=== PATIENT | male | born 2000 | race Caucasian/White ===

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

== ENCOUNTER 2018-07-16 10:57 | Emergency (ER) | payer OTHER ==
[2018-07-16] MEDS ORDERED: LORazepam 2 MG/ML INJ IVP ONE (11:31)
--- NOTE | 2018-07-16 11:33 | EDPHY ---
H & P Stated Complaint: SOB/anxiety Time Seen by Provider: 07/16/18 11:19 HPI/ROS: CHIEF COMPLAINT: Dyspnea, anxious HISTORY OF PRESENT ILLNESS: The patient presents the ED with complaints of shortness of breath, mild anxiety, extremity paresthesias and restlessness which began after smoking marijuana yesterday. The patient does report he is a chronic user of marijuana and did not smoking excess or have a new strain of marijuana. He is had ongoing symptoms today prompting his visit to the emergency department. He reports symptoms of dysphoria, restlessness, anxiety and extremity paresthesias. Patient denies any fever or productive cough. His symptoms are made worse with deep breaths. He denies any asymmetric calf pain or swelling. He denies significant past medical history and takes no regular medications. REVIEW OF SYSTEMS: A comprehensive 10 point review of systems is otherwise negative aside from elements mentioned in the history of present illness. Source: Patient Exam Limitations: No limitations - Personal History Current Tetanus/Diphtheria Vaccine: Yes - Medical/Surgical History Hx Asthma: No Hx Chronic Respiratory Disease: No Hx Diabetes: No Hx Cardiac Disease: No Hx Renal Disease: No Hx Cirrhosis: No Hx Alcoholism: No Hx HIV/AIDS: No Hx Splenectomy or Spleen Trauma: No Other PMH: R SHOULDER DISLOCATION/R INGUINAL HERNIA - Social History Smoking Status: Current some day smoker - Physical Exam Exam: General Appearance: Alert, anxious, no acute distress Eyes: Pupils equal and round no pallor or injection ENT, Mouth: Mucous membranes moist Respiratory: There are no retractions, lungs are clear to auscultation Cardiovascular: Regular rate and rhythm Gastrointestinal: Abdomen is soft and nontender, no masses, bowel sounds normal Neurological: A&O, normal motor function, normal sensory exam, normal cranial nerves Skin: Warm and dry, no rashes Musculoskeletal: Neck is supple nontender Extremities: symmetrical, full range of motion Psychiatric: Patient is oriented X 3, there is no agitation Constitutional: Initial Vital Signs Temperature (C) 36.6 C 07/16/18 11:10 Heart Rate 65 07/16/18 11:10 Respiratory Rate 18 07/16/18 11:10 Blood Pressure 149/90 H 07/16/18 11:10 O2 Sat (%) 98 07/16/18 11:10 O2 Delivery Mode Room Air Allergies/Adverse Reactions: No Known Allergies Allergy (Unverified 07/16/18 11:14) Home Medications: Medication Instructions Recorded Ondansetron Odt [Zofran Odt 4 mg 4 mg PO Q4 PRN #6 tab 03/12/17 (*)] Pantoprazole Sodium [Protonix 40mg 40 mg PO DAILY #20 tab 03/12/17 (*)] Ranitidine HCl 03/12/17 Medical Decision Making - Diagnostics EKG Interpretation: EKG: Complete interpretation has been separately recorded in the [employer] archive. Summary impression: Sinus rhythm, rate 51, no ischemic changes noted, Imaging Results: Imaging Impressions Chest X-Ray 07/16/18 11:20 Impression: No acute pulmonary disease. ED Course/Re-evaluation: The patient presents to the ED with symptoms consistent with hyperventilation after using THC. The patient's EKG demonstrates no acute changes. The patient' s chest x-ray demonstrates no evidence of a pneumonia or pneumothorax. The patient is hemodynamically stable. Patient's troponin is normal. The patient did receive 1 mg of IV Ativan. I reassessed the patient at 12:30 p.m.. He is feeling much better. The patient does report that he was using LSD over the weekend which certainly contributed to his symptoms today. At this point time the patient is back to normal with no acute complaints. The patient has been cautioned about the use of recreational drugs. The patient will be discharged home with a friend who will pick him up. He is given instructions to return to the ED for any recurrent symptoms of shortness of breath or abnormal behavior. Differential Diagnosis: Differential diagnosis considered includes hyperventilation, dehydration, pneumothorax, pneumonia, pericarditis, myocardial infarction - Data Points Laboratory Results: 07/16/18 07/16/18 11:30 11:30 POC Troponin I 0.00 ng/mL ng/mL (0.00-0.08) Troponin I Pending Medications Given: Discontinued Medications Lorazepam (Ativan Injection) 1 mg IVP EDNOW ONE Stop: 07/16/18 11:32 Last Admin: 07/16/18 11:42 Dose: 1 mg Point of Care Test Results: Chemistry 07/16/18 11:30 POC Troponin I 0.00 ng/mL ng/mL (0.00-0.08) Departure - Departure Disposition: Home, Routine, Self-Care Clinical Impression: Acute dyspnea, Hyperventilation, Anxiety reaction, Poisoning by LSD Condition: Good Instructions: Hyperventilation (ED) Additional Instructions: 1. Your testing in the emergency department today demonstrates no significant abnormality. 2. I do believe that you are hyperventilating from the marijuana, MDMA and LSD you consumed this weekend. I highly recommend not using recreational drugs.
--- NOTE | 2018-07-16 11:35 | CPEKG ---
Test Reason : OPEN Blood Pressure : / mmHG Vent. Rate : 051 BPM Atrial Rate : 050 BPM P-R Int : 123 ms QRS Dur : 098 ms QT Int : 390 ms P-R-T Axes : 070 097 057 degrees QTc Int : 360 ms Sinus rhythm Atrial premature complex Consider right ventricular hypertrophy Confirmed by Israel Escobar ([id number]) on 07/16/2018 11:35:37 AM Referred By: Confirmed By:Israel Escobar
[2018-07-16 12:26] VITALS: BP 125/72
== END 2018-07-16 12:34 | disposition home or self-care (01) ==
DX: R06.4 Hyperventilation (principal); F12.90 Cannabis use, unspecified, uncomplicated
CPT/HCPCS: 84484-PO; 96374; J2060

== ENCOUNTER 2018-08-16 13:30 | Emergency (ER) | payer OTHER ==
--- NOTE | 2018-08-16 14:21 | EDPHY ---
H & P Stated Complaint: small amt pa blood in stool Source: Patient Exam Limitations: No limitations - Personal History Current Tetanus Diphtheria and Acellular Pertussis (TDAP): Unsure - Medical/Surgical History Hx Asthma: No Hx Chronic Respiratory Disease: No Hx Diabetes: No Hx Cardiac Disease: No Hx Renal Disease: No Hx Cirrhosis: No Hx Alcoholism: No Hx HIV/AIDS: No Hx Splenectomy or Spleen Trauma: No Other PMH: R SHOULDER DISLOCATION/R INGUINAL HERNIA/ gerd - Social History Smoking Status: Current some day smoker Time Seen by Provider: 08/16/18 14:20 HPI/ROS: HPI: This is a 18-year-old male who presents with Chief Complaint: small amt pa blood in stool Location: rectal Quality: Bleeding Duration: Prior to arrival Signs and Symptoms: no fever, no nausea, no vomiting, no hematemesis, + blood in stool, no abdominal bloating, no diarrhea, no back pain, no urinary symptoms , no testicular/groin pain, no indigestion, no chest pain, no shortness of breath Timing: Acute Severity: Mild Context: Patient is a student at [employer], presents with complaints of a small amount of pa blood while having a bowel movement this afternoon. Patient reports that he was straining to have a bowel movement. He admits to not drinking enough water the last several days. Denies any head hemorrhoids, nausea, vomiting, fever. He is eating and drinking without any difficulty. Modifying Factors: None Comment: ROS: A comprehensive 10 system review of systems is otherwise negative aside from elements mentioned in the history of present illness. MEDICAL/SURGICAL/SOCIAL HISTORY: Medical history: R SHOULDER DISLOCATION/R INGUINAL HERNIA/Gerd Surgical history: Denies Social history: Every day smoker. Family history noncontributory. CONSTITUTIONAL: Slightly anxious extremely well-appearing young adult white male, awake and alert, no obvious distress HEENT: Atraumatic and normocephalic, PERRL, EOMI. Nares patent; no rhinorrhea; no nasal mucosal edema. Tympanic membranes clear. Oropharynx clear, no exudate and moist pink mucosa. Airway patent. No lymphadenopathy. No meningismus. Cardiovascular: Normal S1/S2, regular rate, regular rhythm, without murmur rub or gallop. PULMONARY/CHEST: Symmetrical and nontender. Clear to auscultation bilaterally. Good air movement. No accessory muscle usage. ABDOMEN: Soft, nondistended, nontender, no rebound, no guarding, no peritoneal signs, no masses or organomegaly. No CVAT. RECTAL: Good sphincter tone, light brown stool in vault, no external hemorrhoids , no fissures, no palpable masses, guaiac negative EXTREMITIES: 2/2 pulses, strength 5/5, no deformities, no clubbing, no cyanosis or edema. NEUROLOGICAL: no focal neuro deficits. GCS 15. SKIN: Warm and dry, no erythema. no rash. Good capillary refill. (Shahrzad Frank) Constitutional: Initial Vital Signs Temperature (C) 36.6 C 08/16/18 13:36 Heart Rate 55 L 08/16/18 13:36 Respiratory Rate 18 08/16/18 13:36 Blood Pressure 138/69 H 08/16/18 13:36 O2 Sat (%) 97 08/16/18 13:36 O2 Delivery Mode Room Air Allergies/Adverse Reactions: No Known Allergies Allergy (Verified 08/16/18 13:34) Home Medications: Medication Instructions Recorded Ondansetron Odt [Zofran Odt 4 mg 4 mg PO Q4 PRN #6 tab 03/12/17 (*)] Pantoprazole Sodium [Protonix 40mg 40 mg PO DAILY #20 tab 03/12/17 (*)] Ranitidine HCl 03/12/17 Medical Decision Making ED Course/Re-evaluation: Vital signs stable upon arrival. No signs of thrombosed hemorrhoids/rectal fissure Abdomen is soft and nontender and doubt surgical process and need for imaging. Occult stool is negative. Advised supportive care and reassurance provided. This patient was seen under the supervision of my secondary supervising physician. I evaluated care for this patient independently. Discussed this patient with Dr. Rodney who did not see the patient. (Shahrzad Frank) The patient was evaluated and managed by the physician assistant baseball coach. I have reviewed this chart and I agree with the findings and plan of care as documented , as indicated by my signature. I am the secondary supervising physician. ( Mabel Rodney) Differential Diagnosis: Differential diagnosis includes but is not limited to constipation, rectal laceration, anal fissure, ulcerative colitis, Crohn's disease, hemorrhoid. (Shahrzad Frank) Departure - Departure Disposition: Home, Routine, Self-Care Clinical Impression: Straining during bowel movements Condition: Good Instructions: Constipation (ED), Rectal Bleeding (ED) Additional Instructions: Consume a minimum of 8-10 glasses of water or electrolyte fluid replacement drinks that include Gatorade, Powerade, Pedialyte. Do Not strain to have a bowel movement. Take MiraLax daily as needed for constipation. Referrals: BONNIE Camacho,. [Clinic] - Follow Up Only If Needed
[2018-08-16 15:24] VITALS: BP 124/77
== END 2018-08-16 15:24 | disposition home or self-care (01) ==
DX: R19.4 Change in bowel habit (principal)

== ENCOUNTER 2018-12-04 14:23 | Emergency (ER) | payer OTHER ==
--- NOTE | 2018-12-04 14:27 | EDPHY ---
H & P Source: Patient Exam Limitations: No limitations - Medical/Surgical History Hx Asthma: No Hx Chronic Respiratory Disease: No Hx Diabetes: No Hx Cardiac Disease: No Hx Renal Disease: No Hx Cirrhosis: No Hx Alcoholism: No Hx HIV/AIDS: No Hx Splenectomy or Spleen Trauma: No Other PMH: R SHOULDER DISLOCATION/R INGUINAL HERNIA/ gerd - Social History Smoking Status: Current some day smoker Time Seen by Provider: 12/04/18 14:27 HPI/ROS: HPI: This is a 18-year-old male who presents with Chief Complaint: flu like symptoms fever cough body aches Location: Body Quality: Subjective fever, cough, body aches Duration: 2-3 days Signs and Symptoms: + subjective fever, no nausea, no vomiting, no diarrhea, no urinary symptoms, no chest pain, no shortness of breath, no wheezing, + nonproductive cough, no sore throat, no neck stiffness, no joint pain, no swollen glands, no ear pain, no rash Timing: Acute Severity: [id number] Context: Patient presents with 2-3 day history of subjective fever, nonproductive cough, body aches. Patient has no history of lung disease. Does use tobacco and marijuana. Did Not receive influenza vaccine this year. Also complains of some nasal congestion. Modifying Factors: No [id number] medications used Comment: ROS: A comprehensive 10 system review of systems is otherwise negative aside from elements mentioned in the history of present illness. MEDICAL/SURGICAL/SOCIAL HISTORY: Medical history: R SHOULDER DISLOCATION/R INGUINAL HERNIA/ gerd Surgical history: Denies Social history: Current every day smoker. Marijuana user. Employed at [employer]. Family history noncontributory. CONSTITUTIONAL: Well-appearing young adult white male, awake and alert, no obvious distress HEENT: Atraumatic and normocephalic, PERRL, EOMI. Nares patent; no rhinorrhea; no nasal mucosal edema. Tympanic membranes clear. Oropharynx clear, no exudate and moist pink mucosa. Airway patent. No lymphadenopathy. No meningismus. Cardiovascular: Normal S1/S2, regular rate, regular rhythm, without murmur rub or gallop. PULMONARY/CHEST: Symmetrical and nontender. Clear to auscultation bilaterally. Good air movement. No accessory muscle usage. Dry cough noted. ABDOMEN: Soft, nondistended, nontender, no rebound, no guarding, no peritoneal signs, no masses or organomegaly. No CVAT. EXTREMITIES: 2/2 pulses, strength 5/5, no deformities, no clubbing, no cyanosis or edema. NEUROLOGICAL: no focal neuro deficits. GCS 15. SKIN: Warm and dry, no erythema. no rash. Good capillary refill. (Shahrzad Frank) Constitutional: Initial Vital Signs Temperature (C) 37.4 C 12/04/18 14:27 Heart Rate 73 12/04/18 14:27 Respiratory Rate 18 12/04/18 14:27 Blood Pressure 136/76 H 12/04/18 14:27 O2 Sat (%) 94 12/04/18 14:27 O2 Delivery Mode Room Air Allergies/Adverse Reactions: No Known Allergies Allergy (Verified 12/04/18 14:26) Home Medications: Medication Instructions Recorded Albuterol Sulfate [Proair Hfa] 1 - 2 puffs IH Q4-6PRN PRN #1 12/04/18 [email or web address] Fluticasone Nasal [Flonase Nasal 1 sprays NASAL DAILY 7 Days #1 mdi 12/04/18 [place] (RX)] predniSONE [predniSONE TAPER] 10 mg PO DAILY 6 Days ea 12/04/18 Medical Decision Making - Diagnostics Imaging Results: Imaging Impressions Chest X-Ray 12/04/18 14:35 Impression: Mild central bronchitis; otherwise negative chest. ED Course/Re-evaluation: Vital signs reviewed and stable upon arrival. Chest x-ray ordered and my read via PAC shows bronchitic changes but no opacity , no effusion, no widened mediastinum, no pneumothorax No signs of tonsillar abscess, meningitis, otitis media, sinusitis, dehydration Suspect this is viral in nature. No indication for antibiotics. Ibuprofen 600 mg given in the emergency room. Given a prescription for steroid taper, nasal spray, albuterol inhaler This patient was seen under the supervision of my secondary supervising physician. I evaluated care for this patient independently. (Shahrzad Frank) I did not see this patient while he was in the emergency department. However his care was discussed with the PA while the patient was in the department. I agree with treatment plan and management (Krish Ledesma) Differential Diagnosis: Differential diagnosis includes but is not limited to influenza, bronchitis, pneumonia, sepsis, sinusitis. (Shahrzad Frank) - Data Points Medications Given: Discontinued Medications Ibuprofen (Motrin) 600 mg PO EDNOW ONE Stop: 12/04/18 15:05 Last Admin: 12/04/18 15:07 Dose: 600 mg Departure - Departure Disposition: Home, Routine, Self-Care Clinical Impression: Acute viral bronchitis, Tobacco user Condition: Good Instructions: Acute Bronchitis (ED) Additional Instructions: Rest as much as possible until you are feeling better. Consume a minimum of 8-10 glasses of water or electrolyte fluid replacement drinks that include Gatorade, Powerade, Pedialyte. Please stop smoking marijuana or tobacco. Take steroid taper daily as directed. Use albuterol inhaler every 4-6 hours as needed for shortness of breath, wheezing. Use Flonase nasal spray every day for the next 7 days. Return to the ER immediately if you experience fevers/chills, shortness of breath, abdominal pain, inability to tolerate oral intake, or any other symptoms that concern you. Referrals: Steve Lamb MD [Primary Care Provider] - As per Instructions Stand Alone Forms: Work Excuse Prescriptions: Albuterol Sulfate [Proair Hfa] 1 - 2 puffs IH Q4-6PRN PRN #1 [email or web address] PRN Reason: Short Of Breath/Dyspnea Fluticasone Nasal [Flonase Nasal [place] (RX)] 1 sprays NASAL DAILY 7 Days #1 mdi predniSONE [predniSONE TAPER] 10 mg PO DAILY 6 Days ea
[2018-12-04] MEDS ORDERED: IBUPROFEN 600 MG TAB PO ONE ×2 (15:04→15:08)
[2018-12-04 15:27] VITALS: BP 126/65
== END 2018-12-04 15:29 | disposition home or self-care (01) ==
DX: J20.9 Acute bronchitis, unspecified (principal); F17.200 Nicotine dependence, unspecified, uncomplicated